=== PATIENT | male | born 1970 | race Hispanic/Latino ===

== ENCOUNTER 2020-07-12 08:01 | Emergency (ER) | payer OTHER ==
[2020-07-12] MEDS ORDERED: HYDROcodone/ACETAMINOPHEN 5-325 MG TAB PO ONE (08:32)
--- NOTE | 2020-07-12 08:33 | Event Note ---
ED Screening Note Date of service: 07/12/20 Time: 08:30 ED Screening Note: This 50-year-old male presents with sudden onset of right-sided flank pain times today. CVA tenderness on the right This initial assessment/diagnostic orders/clinical plan/treatment(s) is/are subject to change based on patients health status, clinical progression and re- assessment by fellow clinical providers in the ED. Further treatment and workup at subsequent clinical providers discretion. Patient/guardian urged not to elope from the ED as their condition may be serious if not clinically assessed and managed. Initial orders include: Labs, UA, CT ordered.
--- NOTE | 2020-07-12 09:03 | Cat Scan Report ---
CT ABDOMEN AND PELVIS WITHOUT CONTRAST INDICATION / CLINICAL INFORMATION: flank pain. TECHNIQUE: Axial CT images were obtained through the abdomen and pelvis without IV contrast. All CT scans at [facility] are performed using CT dose reduction for ALARA by means of automated exposure control. COMPARISON: None available. FINDINGS: LOWER CHEST: No significant abnormality. LIVER: No significant abnormality. GALLBLADDER: Cholelithiasis without acute cholecystitis. BILE DUCTS: No significant abnormality. PANCREAS: No significant abnormality. SPLEEN: No significant abnormality. ADRENALS: No significant abnormality. RIGHT KIDNEY / URETER: Small 4 mm calcified stone partially obstructive right proximal ureter with mi ld hydronephrosis and periureteral/perinephric fat stranding. Additional tiny right inferior pole hung yx stone measures 2 mm. LEFT KIDNEY / URETER: No significant abnormality. STOMACH / SMALL BOWEL: No significant abnormality. COLON: No significant abnormality. APPENDIX: No significant abnormality. PERITONEUM: No free fluid. No free air. No fluid collection. LYMPH NODES: No significant adenopathy. AORTA / ARTERIES: Mild atherosclerotic calcification without acute abnormality. IVC / VEINS: No significant abnormality. URINARY BLADDER: No significant abnormality. No calcified stone burden REPRODUCTIVE ORGANS: No significant abnormality. ADDITIONAL FINDINGS: None. 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 No aggressive osseous lesions. IMPRESSION: 1. Partially obstructive 4 mm calcified stone right proximal ureter with mild hydroureteronephrosis a nd periureteral/perinephric fat stranding. There is an additional tiny inferior calyceal stone measur ing 2 mm. 2. No calcified stone burden or hydronephrosis in the left collecting system. 3. Cholelithiasis without acute cholecystitis. Signer Name: Dalton Cantu MD Signed: 07/12/2020 8:59 AM Workstation Name: [id number]
[2020-07-12 09:27] LABS: Basophils % (Auto) 0.5 % (0.0-1.8); Eosinophils # (Auto) 0.2 K/mm3 (0.0-0.4); Eosinophils % (Auto) 2.4 % (0.0-4.3); Hematocrit 46.3 % (35.5-45.6); Hemoglobin 15.9 gm/dl (11.8-15.2); Lymphocytes # (Auto) 2.2 K/mm3 (1.2-5.4); Lymphocytes % (Auto) 24.4 % (13.4-35.0); Mean Corpuscular HGB Conc 34 % (32-34); Mean Corpuscular Volume 90 fl (84-94); Monocytes # (Auto) 0.9 K/mm3 (0.0-0.8); Platelet Count 284 K/mm3 (140-440); Red Blood Count 5.14 M/mm3 (3.65-5.03); Red Cell Distribution Width 13.7 % (13.2-15.2)
[2020-07-12 09:51] LABS: Alanine Aminotransferase 72 units/L (7-56); Albumin 4.2 g/dL (3.9-5); BUN/Creatinine Ratio 19; Blood Urea Nitrogen 17 mg/dL (9-20); Calcium 8.9 mg/dL (8.4-10.2); Hemolysis Index 12
[2020-07-12 10:32] LABS: Bilirubin,Urine NEG (Negative); Blood,Urine SM (Negative); Color,Urine Yellow (Yellow); Mucus,Urine FEW /HPF; Protein,Urine <15 mg/dL mg/dL (Negative); Urobilinogen,Urine < 2.0 mg/dL (<2.0)
[2020-07-12] MEDS ORDERED: SODIUM CHLORIDE 0.9% 1000 ML 1,000 ML IV ONE (14:05)
[2020-07-12] MEDS ORDERED: ONDANSETRON 4 MG/2 ML INJ IV ONE (14:05)
[2020-07-12] MEDS ORDERED: KETOROLAC 30 MG/1 ML INJ IV ONE (14:05)
[2020-07-12] MEDS ORDERED: cefTRIAXone/NS 1 GM/50 ML 1 GM/50 ML BAG IV ONE (14:05)
--- NOTE | 2020-07-12 14:08 | Emergency Department Report ---
ED Abdominal Pain HPI - General Chief Complaint: Abdominal Pain Stated Complaint: BACK PAIN PUI?: No Time Seen by Provider: 07/12/20 14:04 Source: patient Mode of arrival: Ambulatory Limitations: No Limitations - History of Present Illness Initial Comments: This is a 50-year-old male with a history of hypertension who presents to the ED complaining of a sudden onset of right-sided flank pain that began this morning as he was driving to work. Patient states that pain came out of nowhere began gradually and then intensified. Patient states that it was a sharp intense pain that was constant. Patient states that he had a pulled on the side of the road and let his son drive him here to the emergency room. Patient states that once he got here the pain intensified and started to experience some nausea. He denies vomiting diarrhea, fever, chills, chest pain or shortness of breath. MD Complaint: flank pain -: Sudden Location: R flank Severity scale (0 -10): 10 Associated Symptoms: nausea - Related Data Previous Rx's Medication Instructions Recorded Last Taken Type Ketorolac [Toradol] 10 mg PO Q6H PRN #30 tablet 07/12/20 Unknown Rx Ondansetron [Zofran ODT TAB] 8 mg PO Q8HR #30 tab 07/12/20 Unknown Rx Tamsulosin [Flomax] 0.4 mg PO QDAY #10 cap 07/12/20 Unknown Rx Allergies Allergy/AdvReac Type Severity Reaction Status Date / Time No Known Allergies Allergy Unverified 07/12/20 08:10 ED Review of Systems ROS: Stated complaint: BACK PAIN Other details as noted in HPI Comment: All other systems reviewed and negative ED Past Medical Hx - Past Medical History Previous Medical History?: No - Surgical History Past Surgical History?: No - Medications Home Medications: Home Medications Medication Instructions Recorded Confirmed Last Taken Type Ketorolac [Toradol] 10 mg PO Q6H PRN #30 tablet 07/12/20 Unknown Rx Ondansetron [Zofran ODT TAB] 8 mg PO Q8HR #30 tab 07/12/20 Unknown Rx Tamsulosin [Flomax] 0.4 mg PO QDAY #10 cap 07/12/20 Unknown Rx ED Physical Exam - General Limitations: No Limitations General appearance: alert, in no apparent distress - Head Head exam: Present: atraumatic, normocephalic - Eye Eye exam: Present: normal appearance - ENT ENT exam: Present: mucous membranes moist - Neck Neck exam: Present: normal inspection - Respiratory Respiratory exam: Present: normal lung sounds bilaterally. Absent: respiratory distress - Cardiovascular Cardiovascular Exam: Present: regular rate, normal rhythm. Absent: systolic murmur, diastolic murmur, rubs, gallop - GI/Abdominal GI/Abdominal exam: Present: soft, normal bowel sounds - Rectal Rectal exam: Present: deferred - Extremities Exam Extremities exam: Present: normal inspection - Back Exam Back exam: Present: normal inspection, full ROM, CVA tenderness (R) - Neurological Exam Neurological exam: Present: alert, oriented X3, normal gait - Psychiatric Psychiatric exam: Present: normal affect, normal mood - Skin Skin exam: Present: warm, dry, intact, normal color. Absent: rash ED Course Vital Signs 07/12/20 07/12/20 07/12/20 08:05 14:00 15:12 Temperature 98.1 F Pulse Rate 59 L 82 75 Respiratory 17 16 16 Rate Blood Pressure 166/82 238/114 178/102 [Right] O2 Sat by Pulse 97 98 98 Oximetry ED Medical Decision Making - Lab Data Result diagrams: 07/12/20 08:46 07/12/20 08:46 Laboratory Last Values WBC 8.9 K/mm3 (4.5-11.0) 07/12/20 08:46 RBC 5.14 M/mm3 (3.65-5.03) H 07/12/20 08:46 Hgb 15.9 gm/dl (11.8-15.2) H 07/12/20 08:46 Hct 46.3 % (35.5-45.6) H 07/12/20 08:46 MCV 90 fl (84-94) 07/12/20 08:46 MCH 31 pg (28-32) 07/12/20 08:46 MCHC 34 % (32-34) 07/12/20 08:46 RDW 13.7 % (13.2-15.2) 07/12/20 08:46 Plt Count 284 K/mm3 (140-440) 07/12/20 08:46 Lymph % (Auto) 24.4 % (13.4-35.0) 07/12/20 08:46 [place] % (Auto) 10.0 % (0.0-7.3) H 07/12/20 08:46 Eos % (Auto) 2.4 % (0.0-4.3) 07/12/20 08:46 Baso % (Auto) 0.5 % (0.0-1.8) 07/12/20 08:46 Lymph # (Auto) 2.2 K/mm3 (1.2-5.4) 07/12/20 08:46 [place] # (Auto) 0.9 K/mm3 (0.0-0.8) H 07/12/20 08:46 Eos # (Auto) 0.2 K/mm3 (0.0-0.4) 07/12/20 08:46 Baso # (Auto) 0.0 K/mm3 (0.0-0.1) 07/12/20 08:46 Seg Neutrophils % 62.7 % (40.0-70.0) 07/12/20 08:46 Seg Neutrophils # 5.6 K/mm3 (1.8-7.7) 07/12/20 08:46 Sodium 141 mmol/L (137-145) 07/12/20 08:46 Potassium 3.9 mmol/L (3.6-5.0) 07/12/20 08:46 Chloride 105.2 mmol/L (98-107) 07/12/20 08:46 Carbon Dioxide 25 mmol/L (22-30) 07/12/20 08:46 Anion Gap 15 mmol/L 07/12/20 08:46 BUN 17 mg/dL (9-20) 07/12/20 08:46 Creatinine 0.9 mg/dL (0.8-1.3) 07/12/20 08:46 Estimated GFR > 60 ml/min 07/12/20 08:46 BUN/Creatinine Ratio 19 % 07/12/20 08:46 Glucose 137 mg/dL (75-100) H 07/12/20 08:46 Calcium 8.9 mg/dL (8.4-10.2) 07/12/20 08:46 Total Bilirubin 1.10 mg/dL (0.1-1.2) 07/12/20 08:46 AST 47 units/L (5-40) H 07/12/20 08:46 ALT 72 units/L (7-56) H 07/12/20 08:46 Alkaline Phosphatase 91 units/L (35-129) 07/12/20 08:46 Total Protein 7.8 g/dL (6.3-8.2) 07/12/20 08:46 Albumin 4.2 g/dL (3.9-5) 07/12/20 08:46 Albumin/Globulin Ratio 1.2 % 07/12/20 08:46 Urine Color Yellow (Yellow) 07/12/20 Unknown Urine Turbidity Clear (Clear) 07/12/20 Unknown Urine pH 8.0 (5.0-7.0) H 07/12/20 Unknown Ur Specific [place] 1.017 (1.003-1.030) 07/12/20 Unknown Urine Protein <15 mg/dl mg/dL (Negative) 07/12/20 Unknown Urine Glucose (UA) Neg mg/dL (Negative) 07/12/20 Unknown Urine Ketones Neg mg/dL (Negative) 07/12/20 Unknown Urine Blood Sm (Negative) 07/12/20 Unknown Urine Nitrite Neg (Negative) 07/12/20 Unknown Urine Bilirubin Neg (Negative) 07/12/20 Unknown Urine Urobilinogen < 2.0 mg/dL (<2.0) 07/12/20 Unknown Ur Leukocyte Esterase Neg (Negative) 07/12/20 Unknown Urine WBC (Auto) 1.0 /HPF (0.0-6.0) 07/12/20 Unknown Urine RBC (Auto) 7.0 /HPF (0.0-6.0) 07/12/20 Unknown Urine Mucus Few /HPF 07/12/20 Unknown - Radiology Data Radiology results: report reviewed, image reviewed CT ABDOMEN AND PELVIS WITHOUT CONTRAST INDICATION / CLINICAL INFORMATION: flank pain. TECHNIQUE: Axial CT images were obtained through the abdomen and pelvis without IV contrast. All CT scans at this location are performed using CT dose reduction for ALARA by means of automated exposure control. COMPARISON: None available. FINDINGS: LOWER CHEST: No significant abnormality. LIVER: No significant abnormality. GALLBLADDER: Cholelithiasis without acute cholecystitis. BILE DUCTS: No significant abnormality. PANCREAS: No significant abnormality. SPLEEN: No significant abnormality. ADRENALS: No significant abnormality. RIGHT KIDNEY / URETER: Small 4 mm calcified stone partially obstructive right proximal ureter with mild hydronephrosis and periureteral/perinephric fat stranding. Additional tiny right inferior pole calyx stone measures 2 mm. LEFT KIDNEY / URETER: No significant abnormality. STOMACH / SMALL BOWEL: No significant abnormality. COLON: No significant abnormality. APPENDIX: No significant abnormality. PERITONEUM: No free fluid. No free air. No fluid collection. LYMPH NODES: No significant adenopathy. AORTA / ARTERIES: Mild atherosclerotic calcification without acute abnormality. IVC / VEINS: No significant abnormality. URINARY BLADDER: No significant abnormality. No calcified stone burden REPRODUCTIVE ORGANS: No significant abnormality. ADDITIONAL FINDINGS: None. SKELETAL SYSTEM: Moderate multilevel degenerative changes are noted of the s pine with bilateral pars defects at L5 level. No aggressive osseous lesions. IMPRESSION: 1. Partially obstructive 4 mm calcified stone right proximal ureter with mild hydroureteronephrosis and periureteral/perinephric fat stranding. There is an additional tiny inferior calyceal stone measuring 2 mm. 2. No calcified stone burden or hydronephrosis in the left collecting system. 3. Cholelithiasis without acute cholecystitis. Signer Name: Dalton Cisneros MD Signed: 07/12/2020 8:59 AM Workstation Name: [id number] Transcribed By: Dictated By: DALTON CISNEROS Electronically Authenticated By: DALTON CISNEROS Signed Date/Time: 07/12/20 0859 - Medical Decision Making 50-year-old male who presented with right ureteral stone. Patient reports feeling much better after administration of fluids and meds. Patient's blood pressure was reduced with 20 hydralazine. Discussed to take blood pressure medication. Patient was asymptomatic throughout ED. Discussed with patient follow-up with urology. Referrals given to patient. Patient was speaking clearly in clear sentences. Comfortable in the ED bed. Stable for discharge - Differential Diagnosis Kidney stone, UTI cholelithiasis, appendicitis Critical care attestation.: If time is entered above; I have spent that time in minutes in the direct care of this critically ill patient, excluding procedure time. ED Disposition Clinical Impression: Nephrolithiasis, Ureteral calculus Disposition: - TO HOME OR SELFCARE Is pt being admited?: No Does the pt Need Aspirin: No Condition: Stable Instructions: Kidney Stones, Laser Therapy for Kidney Stones, Care After, Low- Purine Eating Plan Additional Instructions: Make sure to follow up with the primary care physician as discussed. Take all your medications as you've been prescribed. If you have any worsening symptoms or develop new symptoms please return to ED immediately. Prescriptions: Tamsulosin [Flomax] 0.4 mg PO QDAY #10 cap Ketorolac [Toradol] 10 mg PO Q6H PRN #30 tablet PRN Reason: Pain Ondansetron [Zofran ODT TAB] 8 mg PO Q8HR #30 tab Referrals: PRIMARY CAREMD [Primary Care Provider] - 3-5 Days BRIANNE GRIFFITHS MD [Staff Physician] - 3-5 Days [facility] [Provider Group] - 3-5 Days Forms: Work/School Release Form(ED) Time of Disposition: 15:56
[2020-07-12] MEDS ORDERED: cloNIDine 0.2 MG TAB PO ONE (14:21)
[2020-07-12] MEDS ORDERED: hydrALAZINE 20 MG/1 ML INJ IV ONE (14:33)
[2020-07-12] MEDS ORDERED: hydrALAZINE 20 MG/1 ML INJ ONE (14:34)
[2020-07-12 15:13] VITALS: BP 178/102
== END 2020-07-12 16:30 | disposition home or self-care (01) ==
LOC: ED 08:01
DX: N20.0 Calculus of kidney (principal); N20.1 Calculus of ureter; Z79.899 Other long term (current) drug therapy
CPT/HCPCS: 36415; 74176; 80053; 81001; 85025; 96365; 96375; 99284; J0360; J0696; J1885; J2405; J7030